=== PATIENT | female | born 1940 | race Caucasian/White ===

== ENCOUNTER 2023-08-09 13:56 | Outpatient (RCR) | payer MEDICARE, OTHER, SELFPAY | END 2023-08-09 23:59 | disposition home or self-care (01) | LOC: RPT 13:56 | PROVIDERS: ATTENDING PHYSICIAN Nurse Practitioner Family | DX: M54.2 Cervicalgia (principal); Z73.6 Limitation of activities due to disability | CPT/HCPCS: 97010; 97110; 97162 ==

== ENCOUNTER 2023-08-17 13:48 | Outpatient (RCR) | payer MEDICARE, OTHER, SELFPAY | END 2023-08-17 23:59 | disposition home or self-care (01) | LOC: RPT 13:48 | PROVIDERS: ATTENDING PHYSICIAN Nurse Practitioner Family | DX: M54.2 Cervicalgia (principal); Z73.6 Limitation of activities due to disability | CPT/HCPCS: 97010; 97110 ==

== ENCOUNTER → 2023-09-13 11:29 | Outpatient (REF) | payer MEDICARE, OTHER, SELFPAY | LOC: HWRAD 11:29 | PROVIDERS: ATTENDING PHYSICIAN Nurse Practitioner Family | DX: Z78.0 Asymptomatic menopausal state (principal); R29.890 Loss of height | CPT/HCPCS: 77080 ==

== ENCOUNTER 2023-12-20 21:26 | Emergency (ER) | payer MEDICARE, OTHER, SELFPAY ==
[2023-12-20] VITALS (8 sets, daily range): BP systolic 128–161; BP diastolic 48–79; PULSE 74–78; BMI 23.5
[2023-12-20 22:04] LABS: % Basophils 0.8 % (0-2); % Eosinophils 1.3 % (0-6); % Immature Granulocytes 0.3 % (0-0.5); % Lymphocytes 20.6 % (20.5-51.1); % Monocytes 7.8 % (1.7-9.3); % Neutrophils 69.2 % (42.2-75.2); Absolute Basophils 0.1 10^3/uL (0-0.2); Absolute Eosinophils 0.1 10^3/uL (0-0.7); Absolute Lymphocytes 2.3 10^3/uL (1.2-3.4); Absolute Monocytes 0.9 10^3/uL (0.1-0.6); Absolute Neutrophils 7.6 10^3/uL (1.4-6.5); Hematocrit 32.2 % (37.0-47.0); Hemoglobin 10.9 g/dL (12.0-16.0); Mean Corp Hgb Conc. 33.9 g/dL (33.0-37.0); Mean Corpuscular Hgb 27.8 pg (27.0-31.0); Mean Corpuscular Volume 82.1 fL (81.0-99.0); Mean Platelet Volume 9.3 fL (7.4-10.4); Nucleated Red Blood Cells % 0 %; Platelet Count 268 10^3/uL (130-400); Red Blood Cell Count 3.92 10^6/uL (4.20-5.40); Red Cell Dist. Width 15.1 % (11.5-14.5)
[2023-12-20] MEDS: NSS 1000 IV (22:04)
--- NOTE | 2023-12-20 22:08 | ED.GENMED ---
History of Present Illness
<TERENCE Huynh - Last Filed: 12/20/23 23:26>
General
Chief Complaint: Fainting Sensation
Source: patient and family
Exam Limitations: none
Time Seen by Provider: 12/20/23 22:00
Nursing documentation reviewed up to this point in time: agreed with
History of Present Illness
History of Present Illness:
83 year old female presents for evaluation of a syncopal episode. Pt reports that she has been feeling faint over the last 24 hours and has not been hydrating properly, and experienced a brief syncopal episode tonight 12/19 at approximately 2030. Pt
was on her couch watching TV and talking on the phone when she fainted. She denies fall or blow to the head. She has a history of vasovagal episodes triggered by foods, but has not had a syncopal episode in approximately 1.5 years. Pt currently
endorses mild fatigue but is feeling better on fluids. No chest pain, palpitations, no evidence of trauma.
Past History
<TERENCE Huynh - Last Filed: 12/20/23 23:26>
Past History
ED Past Medical History: GERD, HTN, Hypercholesterolemia and Other (IBS)
ED Past Surgical History: Bowel resection (ileostomy), Cholecystectomy and Other (Herniated stomach through the diaphram repaired, Uterus lift, bladder lift, inguinal hernia)
Social History
Tobacco: Non-smoker
Alcohol: Occasional
Drug: None
Personal:
Living: with family
Employment: Retired
Family History
Family History: Other (Noncontributory)
Review of Systems
<TERENCE Huynh - Last Filed: 12/20/23 23:26>
Review of Systems
Allergies reviewed?: Yes
Constitutional: Reports fatigue
EENT: Reports no symptoms
Respiratory: Reports no symptoms
Cardiac: Reports syncope
ABD/GI: Reports no symptoms
: Reports no symptoms
Musculoskeletal: Reports no symptoms
Skin: Reports no symptoms
Neurological: Reports no symptoms
Endocrine: Reports no symptoms
Hematologic/Lymphatic: Reports no symptoms
Psychiatric: Reports no symptoms
Phy Exam
<ST LinoMO - Last Filed: 12/20/23 23:26>
General Physical Exam
General Presentation: well appearing
General age: appears stated age
General Skin: warm
General Habitus: elderly
General Mental: alert
General Hydration: appears well hydrated
Eye Exam
Eye Exam: PERRL and EOMI
Cardiovascular Exam
Cardiovascular Exam: regular rate/rhythm and no murmur
Pulmonary Exam
Pulmonary Exam: lungs clear and no respiratory distress
Neurological Exam
Neurological Exam: alert, oriented x3, no motor deficits, no sensory deficits and other (no evidence of head injury )
Skin Exam
Skin Exam: normal color and warm/dry
Psychiatric Exam
Psychiatric Exam: normal mood/affect
Course
<Hi Mckeon [facility] - Last Filed: 12/20/23 23:26>
Orders/Labs/Results
Orders:
Orders
12/20/23 21:33
Electrocardiogram (*1) Urgent
Reason for Study: Syncope
12/20/23 21:34
EKG- Treatment ONCE
12/20/23 21:56
Cardiac Monitoring- Treatment ONCE
IV Insert/Care/Rem.- Treatment PRN
12/20/23 21:58
Complete Blood Count/With Diff Urgent
Comprehensive Metabolic Panel Urgent
Troponin I Urgent
12/20/23 22:02
0.9% Sodium Chloride 500 ml [Nss] 1,000 ml IV BOLUS
12/20/23 22:48
Ambulate Patient-Treatment ONCE
Orthostatic VS- Treatment ONCE
Abnormal Lab Results
12/20/23
21:58
WBC 11.0 H 10^3/uL
(4.8-10.8)
RBC 3.92 L 10^6/uL
(4.20-5.40)
Hgb 10.9 L g/dL
(12.0-16.0)
Hct 32.2 L %
(37.0-47.0)
RDW 15.1 H %
(11.5-14.5)
Absolute Neuts (auto) 7.6 H 10^3/uL
(1.4-6.5)
Absolute Monos (auto) 0.9 H 10^3/uL
(0.1-0.6)
Sodium 134 L mmol/L
(135-145)
BUN 18 H mg/dl
(7-17)
12/20/23 21:58
12/20/23 21:58
Vital Signs
Initial and Last Documented VS:
Initial Vital Signs
Temp Pulse Resp BP Pulse Ox
97.5 F 76 18 161/79 98
12/20/23 21:29 12/20/23 21:29 12/20/23 21:29 12/20/23 21:29 12/20/23 21:29
Last Documented Vital Signs
Temp Pulse Resp BP Pulse Ox
97.5 F 72 9 129/60 98
12/20/23 21:29 12/20/23 23:00 12/20/23 23:00 12/20/23 23:00 12/20/23 23:00
Luis Antoniolt;Tee Santos, - Last Filed: 12/20/23 22:57>
Orders/Labs/Results
Orders:
Orders
12/20/23 21:33
Electrocardiogram (*1) Urgent
Reason for Study: Syncope
07/09/24 21:34
EKG- Treatment ONCE
12/20/23 21:56
Cardiac Monitoring- Treatment ONCE
IV Insert/Care/Rem.- Treatment PRN
12/20/23 21:58
Complete Blood Count/With Diff Urgent
Comprehensive Metabolic Panel Urgent
Troponin I Urgent
12/20/23 22:02
0.9% Sodium Chloride 500 ml [Nss] 1,000 ml IV BOLUS
12/20/23 22:48
Ambulate Patient-Treatment ONCE
Orthostatic VS- Treatment ONCE
Abnormal Lab Results
12/20/23
21:58
WBC 11.0 H 10^3/uL
(4.8-10.8)
RBC 3.92 L 10^6/uL
(4.20-5.40)
Hgb 10.9 L g/dL
(12.0-16.0)
Hct 32.2 L %
(37.0-47.0)
RDW 15.1 H %
(11.5-14.5)
Absolute Neuts (auto) 7.6 H 10^3/uL
(1.4-6.5)
Absolute Monos (auto) 0.9 H 10^3/uL
(0.1-0.6)
Sodium 134 L mmol/L
(135-145)
BUN 18 H mg/dl
(7-17)
12/20/23 21:58
12/20/23 21:58
Vital Signs
Initial and Last Documented VS:
Initial Vital Signs
Temp Pulse Resp BP Pulse Ox
97.5 F 76 18 161/79 98
12/20/23 21:29 12/20/23 21:29 12/20/23 21:29 12/20/23 21:29 12/20/23 21:29
Last Documented Vital Signs
Temp Pulse Resp BP Pulse Ox
97.5 F 72 9 129/60 98
12/20/23 21:29 12/20/23 23:00 12/20/23 23:00 12/20/23 23:00 12/20/23 23:00
<TERENCE Huynh - Last Filed: 12/20/23 23:26>
MDM/Problems Addressed
Differential Diagnosis Includes:
syncope due to dehydration
<Tee Santos DO - Last Filed: 12/20/23 22:57>
*Critical Care Note
Total Time (30-74mins, 75-104mins- exclusive of procedures): Not Applicable
ED Attending Note
<TERENCE Huynh - Last Filed: 12/20/23 23:26>
-
Portions of this chart may have been created with voice recognition software.� Occasional wrong word or��sound alike� substitutions may have occurred due to the inherent limitations of voice recognition software.
<Tee Santos DO - Last Filed: 12/20/23 22:57>
ED Attending Note
Patient seen and examined by attending physician: Yes
I performed the substantive portion of visit, reviewed & personally made and approve the management plan that is documented in note by myself or LEIA.: Yes
ED Attending Note:
This a pleasant 83-year-old female who presents with a syncopal event today. She was on the phone in a seated position when she passed out briefly. She did not sustain any trauma. She did not strike her head. The symptoms resolved on their own.
Upon arrival she felt fatigued but had no complaints. Patient denied chest pain headache or shortness of breath. Patient received IV fluids and stated that her fatigue resolved. She is accompanied by family members who agreed with the history.
Patient was seen in conjunction with the PA student. I have reviewed and agree with the history and treatment plan presented. On my independent physical exam, patient is awake, alert, and oriented x3, no acute distress. No outward signs of trauma.
Vital signs are stable. Patient not hypoxic
Nursing note reviewed. I agree with nursing documentation up to this point in time.
Home Meds and allergies reviewed.
NUMBER AND COMPLEXITY OF PROBLEMS ADDRESSED AT THE ENCOUNTER
� Chronic conditions affecting care: Atrial fibrillation, hypertension, colostomy, hyponatremia syncopal events, dizziness
� Acute Exacerbation and/or Progression of Chronic Illness: Acute syncopal episode tonight with history of syncope
� Differential Diagnosis includes:
AMOUNT AND/OR COMPLEXITY OF DATA TO BE REVIEWED AND ANALYZED
I performed an independent evaluation of the following and my interpretation is:
EKG: EKG shows normal sinus rhythm rate of 66 with slightly prolonged RI interval at 208 ms (still within normal limits). Otherwise normal intervals, normal axis. No evidence of acute ischemia. When compared with previous EKG
dated October 19, 1999 no significant change noted.
CT:
X-rays:
Ultrasound:
Laboratory Studies: BUN of 18
Other:
Review of other/old records:
Clinical information was obtained by an independent historian:
Prescriptions/Medications Considered but not given:
Further testing considered but not performed:
RISK OF COMPLICATIONS AND/OR MORBIDITY OR MORTALITY OF PATIENT MANAGEMENT
Social determinants of health affecting care: Good Social Support, family at the bedside
Discussion with other providers:
Escalation of care including admission/observation vs risk of discharge considered: Patient is feeling much better, she is asymptomatic at wishes to be discharged home. She has been drinking fluids. She received a liter of
fluid.
CRITICAL CARE NOTE: Not applicable
Total Time (exclusive of procedures):
Update: Patient passed orthostatics and ambulatory testing. Patient walks with a very brisk and steady gait around the department with no complaints. Patient to be discharged home.
Discharge Plan
Departure
Patient Disposition: Home (Routine Discharge)
Date of Disposition: 12/20/23
Time of Disposition: 22:54
Patient with high blood pressure during this ER visit?: Yes
Condition: Good
Discharge Problem:
Syncope, Dehydration
Instructions: Syncope (Fainting) (DC), Dehydration, Adult ED, BLOOD PRESSURE
Prescriptions:
No Action
atorvastatin 10 MG tablet
10 mg PO MOWEFR
aspirin 81 MG tablet,chewable
81 mg PO HS
lisinopril 40 MG tablet
40 mg PO BID
amlodipine 10 mg Tablet
10 mg PO DAILY
TruBiotics 2 billion cell Capsule
1 cap PO DAILY Qty: 0
Algae Based Calcium 333.33 mg-6.67 mcg-32 mg Tablet
2 tab PO BID
omeprazole 40 mg Capsule,Delayed Release(Dr/Ec)
40 mg PO HS
metoprolol tartrate 25 mg tablet
25 mg PO BID
Referrals:
UNKNOWN - PT DOES,NOT KNOW [Unknown Provider] -
Activity Restrictions/Additional Instructions:
It was a pleasure meeting you and taking part in your care. We hope for your continued healing and wellness.
Please read discharge instructions in their entirety. However, they are for general education and may not describe your exact diagnosis at discharge. Information on your ER visit and medical conditions were discussed with you along with appropriate
follow up information...
If indicated, please take your medications as instructed and indicated on discharge paperwork.
Please schedule a follow up appointment as directed. Call to schedule an appointment
Please return to the emergency department with ANY change in, persisting, or worsening of symptoms. If any of your symptoms do not improve, or persist, or become more severe within 6-12 hours, please return to the emergency department for further
care.
Please return to the emergency department if you develop a headache, neck pain/stiffness, fever greater than 100.4F, chest pain, shortness of breath, persistent nausea, vomiting, slurred speech, difficulty walking, numbness/tingling, weakness, signs
of infection or any other symptoms that are worrisome to you.
If you have any questions or concerns please do not hesitate to call the Hospital at or E-mail me directly at [email or web address]
Interventions
Interventions:
*Risk Screen - Suicide Last Done: 12/20/23 21:29
*General Assessment Last Done: 12/20/23 21:29
*Neglect/Abuse Screening Last Done: 12/20/23 21:29
ED- Fall Risk Assessment Last Done: 12/20/23 21:44
*ED COVID-19 Vaccine History Last Done: 12/20/23 23:15
*Nursing Disposition Last Done: 12/20/23 23:15
ED- Cardiac Assessment Last Done: 12/20/23 21:44
ED- Neurological Assessment Last Done: 12/20/23 21:44
Discharge Date and Time
Discharge Date/Time: 12/20/23 23:17
Print Language: [place]
[2023-12-20 22:17] LABS: ALT (SGPT) 17 U/L (0-35); AST (SGOT) 22 U/L (14-36); Albumin 4.3 g/dl (3.5-5.0); Alkaline Phosphatase 87 U/L (38-126); Blood Urea Nitrogen 18 mg/dl (7-17); Calcium 9.6 mg/dl (8.4-10.2); Carbon Dioxide 22 mmol/L (22-30); Estimated Creatinine Clearance 44 ml/min; Glucose 96 mg/dl (70-99); Total Bilirubin 0.3 mg/dl (0.2-1.3); Total Protein 6.7 g/dl (6.3-8.2); eGFR > 60.00
[2023-12-20 22:28] LABS: Troponin I < 0.012 ng/ml
[2023-12-20 22:38] LABS: Chloride 104 mmol/L (98-107); Potassium 3.9 mmol/L (3.5-5.1); Sodium 134 mmol/L (135-145)
== END 2023-12-20 23:17 | disposition home or self-care (01) ==
LOC: EMR 21:26
PROVIDERS: EMERGENCY PHYSICIAN Student in an Organized Health Care Education/Training Program; FAMILY PHYSICIAN Nurse Practitioner Family
DX: R55 Syncope and collapse (principal); E86.0 Dehydration; K21.9 Gastro-esophageal reflux disease without esophagitis; I10 Essential (primary) hypertension; E78.00 Pure hypercholesterolemia, unspecified; K58.9 Irritable bowel syndrome, unspecified; Z90.49 Acquired absence of other specified parts of digestive tract
CPT/HCPCS: 99283; 80053; 84484; 85025; 93005

== ENCOUNTER → 2024-01-17 15:24 | Outpatient (REF) | payer MEDICARE, OTHER, SELFPAY | LOC: HWWDC 15:24 | PROVIDERS: ATTENDING PHYSICIAN Nurse Practitioner Family | DX: Z12.31 Encounter for screening mammogram for malignant neoplasm of breast (principal) | CPT/HCPCS: 77063; 77067 ==

== ENCOUNTER → 2025-03-27 15:43 | Outpatient (REF) | payer MEDICARE, OTHER, SELFPAY | LOC: HWRCS 15:43 | PROVIDERS: ATTENDING PHYSICIAN Internal Medicine Cardiovascular Disease; FAMILY PHYSICIAN Family Medicine | DX: R06.02 Shortness of breath (principal) | CPT/HCPCS: 93306 ==

== ENCOUNTER → 2025-04-01 11:00 | Outpatient (REF) | payer MEDICARE, OTHER, SELFPAY | LOC: HWRCS 11:00 | PROVIDERS: ATTENDING PHYSICIAN Internal Medicine Cardiovascular Disease; FAMILY PHYSICIAN Family Medicine | DX: R06.02 Shortness of breath (principal) | CPT/HCPCS: 78452; 93017; A9500; J2785 ==